=== PATIENT | male | born 1980 | race Caucasian/White ===

== ENCOUNTER 2019-12-17 15:45 | Outpatient (CLI) | payer BC, SELFPAY ==
--- NOTE | 2019-12-17 15:53 | XR_ITS ---
WS: [id number] RIGHT SHOULDER: 3 VIEW(S) TECHNIQUE: Internal and external rotation with Y view. HISTORY: PAIN IN RIGHT SHOULDER COMPARISON: None available. No fracture or dislocation or soft tissue abnormality. Minimal subchondral cystic changes and loss of cortex involving the distal clavicle. Visualized RIGHT lung is clear. XR/XR shoulder RT min 2V* [id number] IMPRESSION: Minimal AC joint arthritis.
== END 2019-12-17 15:46 | disposition home or self-care (01) ==
LOC: RADWPI 15:51
PROVIDERS: Family Provider Nurse Practitioner Family; PCP Nurse Practitioner Family; Visit Provider Nurse Practitioner Family
DX: M13.811 Other specified arthritis, right shoulder (principal)
CPT/HCPCS: 73030

== ENCOUNTER 2023-11-08 15:40 | Outpatient (CLI) | payer BC, SELFPAY ==
--- NOTE | 2023-11-08 15:48 | XR_ITS ---
WS: [id number] Examination: XR knee RT 3V* [id number] Reason for Exam: right knee pain Date: November 08, 2023 Comparison: None. Findings: The bone density is maintained. There is no destruction. There is no displaced fracture or dislocatio n. 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 There is narrowing of the anterior compartment Prominent marginal osteophytes are present. XR/XR knee RT 3V* [id number] Impression: Significant osteoarthritic changes are present without acute bony abnormality.
== END 2023-11-08 15:41 | disposition home or self-care (01) ==
LOC: RAD 15:43
PROVIDERS: Family Provider Nurse Practitioner Family; PCP Nurse Practitioner Family; Visit Provider Nurse Practitioner Family
DX: M17.11 Unilateral primary osteoarthritis, right knee (principal); M25.761 Osteophyte, right knee
CPT/HCPCS: 73562

== ENCOUNTER → 2023-11-23 10:04 | Outpatient (BNVA) | payer BC, SELFPAY | PROVIDERS: Family Provider Nurse Practitioner Family; PCP Nurse Practitioner Family; Visit Provider Nurse Practitioner | DX: M25.561 Pain in right knee (principal) | CPT/HCPCS: 73560; 73565 ==